=== PATIENT | female | born 1990 | race Caucasian/White ===

== ENCOUNTER 2018-02-04 00:36 | Emergency (ER) | payer BC ==
[~2018-02-04] VITALS: Ht 160 cm; Wt 128.4 kg
[2018-02-04 01:25] VITALS: BP_SYST 144
[2018-02-04 02:43] VITALS: BP_SYST 144
== END 2018-02-04 02:43 | disposition home or self-care (01) ==
LOC: SED 00:36
DX: L03.311 Cellulitis of abdominal wall (principal); L02.211 Cutaneous abscess of abdominal wall; E11.9 Type 2 diabetes mellitus without complications; I10 Essential (primary) hypertension
CPT/HCPCS: 99283